=== PATIENT | male | born 2000 | race American Indian/Alaskan Native ===

== ENCOUNTER 2021-10-22 16:13 | Emergency (ER) | payer SELFPAY ==
[2021-10-22 17:26] VITALS: BP 138/89
[2021-10-22] MEDS ORDERED: NEOMY 3.5 MG/BACIT 400 UNITS/POLY B 5000 UNITS/GM OINT PACKET TP ONE (18:06)
[2021-10-22] MEDS ORDERED: TETANUS,DIPH,PERTUSS(ACELL) VACCINE 0.5 ML SYRINGE IM ONE (18:07)
--- NOTE | 2021-10-22 18:11 | Emergency Department Report ---
ED Burn/Smoke HPI - General Chief complaint: Burn/Smoke Inhalation Stated complaint: BURN BOTH LEGS Time Seen by Provider: 10/22/21 18:05 Source: patient Mode of arrival: Ambulatory Limitations: No Limitations - History of Present Illness Initial comments: 21 year old male presents to ED with complaints of burn to bilateral thigh area. Patient states incident occurred 2 days ago while at work. 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 He states he is not exactly sure what happened but he thinks some chemicals may have gotten onto his pants while working. He states when he removed his pants he noticed that his thighs were red. He states left is worse than right. He states he got some over the counter cream which she has been applying to the areas to help with the pain and he has been taking [id number] pain medication. He states that the areas are still sore and the burning has improved, but he came in because he noticed discoloration and was concerned. He denies any drainage from the wound. He states that he has not been using peroxide or alcohol to clean the wound just regular water. He is not sure of his last tetanus. Complaint: burn -: days(s) (2) Severity scale (0 -10): 5 - Related Data Previous Rx's Medication Instructions Recorded Last Taken Type Bacitracin Zinc/Polymyxin B 1 applic TP TID #30 gm 10/22/21 Unknown Rx [Double Antibiotic Ointment] Ibuprofen [Motrin] 600 mg PO Q8H PRN #30 tablet 10/22/21 Unknown Rx cephALEXin [Keflex] 500 mg PO Q6HR #40 capsule 10/22/21 Unknown Rx Allergies Allergy/AdvReac Type Severity Reaction Status Date / Time No Known Allergies Allergy Verified 10/22/21 17:31 Burn HPI - History Stated Complaint: BURN BOTH LEGS Chief Complaint: Burn/Smoke Inhalation Time Seen by Provider: 10/22/21 18:05 - Home Meds and Allergies Home Medications: Previous Rx's Medication Instructions Recorded Last Taken Type Bacitracin Zinc/Polymyxin B 1 applic TP TID #30 gm 10/22/21 Unknown Rx [Double Antibiotic Ointment] Ibuprofen [Motrin] 600 mg PO Q8H PRN #30 tablet 10/22/21 Unknown Rx cephALEXin [Keflex] 500 mg PO Q6HR #40 capsule 10/22/21 Unknown Rx Allergies/Adverse Reactions: Allergies Allergy/AdvReac Type Severity Reaction Status Date / Time No Known Allergies Allergy Verified 10/22/21 17:31 ED Review of Systems ROS: Stated complaint: BURN BOTH LEGS Other details as noted in HPI Comment: All other systems reviewed and negative Constitutional: denies: chills, fever Eyes: denies: eye pain, eye discharge, vision change ENT: denies: ear pain, throat pain Respiratory: denies: cough, shortness of breath, SOB with exertion, SOB at rest, wheezing Cardiovascular: denies: chest pain, palpitations Gastrointestinal: denies: abdominal pain, nausea, diarrhea, constipation, hematemesis, melena, hematochezia Genitourinary: denies: urgency, dysuria, frequency, hematuria, discharge, testicular pain, testicular mass Musculoskeletal: myalgia. denies: back pain, joint swelling, arthralgia Skin: other (+burn to both thighs) Neurological: denies: headache, weakness, numbness, paresthesias, confusion, abnormal gait, vertigo Psychiatric: denies: anxiety, depression, auditory hallucinations, visual hallucinations, homicidal thoughts, suicidal thoughts Hematological/Lymphatic: denies: easy bleeding, easy bruising, swollen glands ED Past Medical Hx - Past Medical History Previous Medical History?: No - Surgical History Past Surgical History?: No - Social History Smoking Status: Never Smoker Substance Use Type: None - Medications Home Medications: Home Medications Medication Instructions Recorded Confirmed Last Taken Type Bacitracin Zinc/Polymyxin B 1 applic TP TID #30 gm 10/22/21 Unknown Rx [Double Antibiotic Ointment] Ibuprofen [Motrin] 600 mg PO Q8H PRN #30 tablet 10/22/21 Unknown Rx cephALEXin [Keflex] 500 mg PO Q6HR #40 capsule 10/22/21 Unknown Rx ED Physical Exam - General Limitations: No Limitations General appearance: alert, in no apparent distress - Head Head exam: Present: atraumatic, normocephalic, normal inspection - Eye Eye exam: Present: normal appearance, PERRL, EOMI Pupils: Present: normal accommodation - Respiratory Respiratory exam: Absent: respiratory distress - Cardiovascular Cardiovascular Exam: Present: regular rate - GI/Abdominal GI/Abdominal exam: Present: soft. Absent: distended, tenderness, guarding, rebound - Neurological Exam Neurological exam: Present: alert, oriented X3, CN II-XII intact, normal gait - Psychiatric Psychiatric exam: Present: normal affect, normal mood - Skin Skin exam: Present: other ( n) - Expanded Skin Exam Expanded 1 - Approximately 2% burn noted to the anterior proximal to mid left thigh with well-demarcated erythema but no streaking, there is also hyperpigmentation and a single blister noted; moderate tenderness to palpation; scant amount of yellow/green discharge. Mild swelling. Patient is able to fully flex and extend his knee and hip without any difficulty. 2 - Approximately 2% second-degree burn noted. It appears well demarcated with erythema and a few patchy areas of hyperpigmented skin that appears to be drying and peeling. There is no tenderness to palpation or swelling. No drainage. Patient has full range of motion of his knee and hip without difficul ty. ED Course Vital Signs 10/22/21 17:24 Temperature 98.6 F Pulse Rate 77 Respiratory 18 Rate Blood Pressure 138/89 [Right] O2 Sat by Pulse 100 Oximetry Critical care attestation.: If time is entered above; I have spent that time in minutes in the direct care of this critically ill patient, excluding procedure time. ED Disposition Clinical Impression: Second degree burn Disposition: 01 HOME / SELF CARE / HOMELESS Is pt being admited?: No Does the pt Need Aspirin: No Condition: Stable Instructions: Second-Degree Burn, Adult Additional Instructions: I recommend that he use antibiotic ointment 3 times a day and keep the wound clean with a gentle soap and water. Do this daily until it heals. Take the K eflex as prescribed. Do not rupture the blister or pick at the skin as it starts to heal. Follow-up closely with your primary care doctor. Return to the ER symptoms worsens in any way. Prescriptions: Bacitracin Zinc/Polymyxin B [Double Antibiotic Ointment] 1 applic TP TID #30 gm cephALEXin [Keflex] 500 mg PO Q6HR #40 capsule Ibuprofen [Motrin] 600 mg PO Q8H PRN #30 tablet PRN Reason: Pain Referrals: BEST CHAHAL MD [Staff Physician] - 3-5 Days Forms: Work/School Release Form(ED) Time of Disposition: 18:17
== END 2021-10-22 19:05 | disposition home or self-care (01) ==
LOC: ED 16:13
DX: T24.219A Burn of second degree of unspecified thigh, initial encounter (principal); X08.8XXA Exposure to other specified smoke, fire and flames, initial encounter; Y93.89 Activity, other specified; Y92.89 Other specified places as the place of occurrence of the external cause; Y99.8 Other external cause status
CPT/HCPCS: 90471; 90715; 99282